=== PATIENT | male | born 1970 | race Caucasian/White ===

== ENCOUNTER 2016-08-16 08:02 | Emergency (ER) | payer OTHER ==
[2016-08-16 08:07] VITALS: RESP 18
--- NOTE | 2016-08-16 08:42 | EDPHY ---
H & P Time Seen by Provider: 08/16/16 08:19 HPI/ROS: CHIEF COMPLAINT: Left thumb, hand laceration HISTORY OF PRESENT ILLNESS: The patient is a 38-year-old male who presents emergency department after cutting his left thumb and hand on a glass. He was trying to open the laundry room window. It was painted shut. It caught and then broke. The patient has mild discomfort. Bleeding is controlled. He has no numbness or tingling. He is able to move his hand and thumb fully. REVIEW OF SYSTEMS: Negative Past Medical/Surgical History: Past medical history negative Smoking Status: Never smoked Physical Exam: Vitals noted General Appearance: Alert and no distress. Head: Pupils equal. Normal. Respiratory: No respiratory distress. Cardiac: regular rate and rhythm. Extremities: Patient has a 2 cm laceration on the base of his left thumb. This is irregular. There is no deep to tissue injury. I visualized no muscle, tendon or ligament injury. No visible foreign body. The patient also has a punctate lesion at the base of his left 5th metacarpal. Patient has full range of motion of his hand. Normal door cutter. Neurovascular intact distally. Skin: No rashes or lesions. Neuro: Alert. Normal mood and affect. Constitutional: Initial Vital Signs Temperature (C) 36.5 C 08/16/16 08:04 Heart Rate 63 08/16/16 08:04 Respiratory Rate 18 08/16/16 08:04 Blood Pressure 108/77 08/16/16 08:04 O2 Sat (%) 95 08/16/16 08:04 O2 Delivery Mode Room Air Allergies/Adverse Reactions: No Known Allergies Allergy (Unverified 08/16/16 08:04) Home Medications: Medication Instructions Recorded NK [No Known Home Meds] 08/16/16 Medical Decision Making ED Course/Re-evaluation: In the emergency department I discussed possible etiologies with the patient. I answered all his questions. Procedure: Laceration repair. Verbal consent was obtained from the patient. The 2 cm laceration on the base of the left thumb was anesthetized in the usual fashion. The wound was irrigated, draped and explored to its base with a gloved finger. There were no deep structures involved. No tendon injury was identified. The wound was repaired with 5 0 nylon. The wound repair was simple. The procedure was performed by myself. I discussed wound care instructions with the patient. I answered all his questions. He is given warnings prior to leaving. He will return with worsening symptoms. Differential Diagnosis: My differential includes but is not limited to laceration, foreign body, ligamentous injury, muscle injury, vascular injury, nerve injury Departure - Departure Disposition: Home, Routine, Self-Care Clinical Impression: Hand laceration Qualifiers: Encounter type: initial encounter Foreign body presence: without foreign body Laterality: left Qualified Code(s): S61.412A - Laceration without foreign body of left hand, initial encounter Condition: Good Instructions: Laceration (ED) Additional Instructions: Return with increased redness, pain, fever or any other concerns. Keep your wound clean and dry. Referrals: Sabrina Dutta MD [Primary Care Provider] - 3-4 days, if not improved
[2016-08-16] MEDS ORDERED: TDAP ADULT 0.5 ML INJ (BOOSTRIX) IM ONE (09:17)
[2016-08-16 09:27] VITALS: BP 121/79; PULSE 64; TEMP 98.6; O2SAT 96
== END 2016-08-16 09:28 | disposition home or self-care (01) ==
PROC: 0HQGXZZ Repair Left Hand Skin, External Approach (ICD-10-PCS; principal; 2016-08-16)
DX: S61.012A Laceration without foreign body of left thumb without damage to nail, initial encounter (principal); Z23 Encounter for immunization; W25.XXXA Contact with sharp glass, initial encounter

== ENCOUNTER 2016-08-18 09:17 | Emergency (ER) | payer OTHER ==
--- NOTE | 2016-08-18 09:39 | EDPHY ---
H & P Stated Complaint: l great toe pain/no known trauma HPI/ROS: Chief complaint: Left great toe pain History of present illness: 46-year-old male presents to the emergency department for left great toe pain. Patient reports the onset of symptoms over the last few days. Symptoms have slowly worsened. He has developed redness the toe. He denies precipitating factors such as trauma. He has used ibuprofen which has helped but not resolve the problem. He denies other associated signs or symptoms including no history of trauma, no fevers, no paresthesias or abnormal coolness in the toe. He has never had similar. - Personal History Current Tetanus/Diphtheria Vaccine: Yes - Medical/Surgical History Hx Asthma: No Hx Chronic Respiratory Disease: No Hx Diabetes: No Hx Cardiac Disease: No Hx Renal Disease: No Hx Cirrhosis: No Hx Alcoholism: No Hx HIV/AIDS: No Hx Splenectomy or Spleen Trauma: No Other PMH: denies - Social History Smoking Status: Never smoked - Physical Exam Exam: General: Alert, nontoxic Skin: Mild erythema over the 1st MTP joint. No warmth, induration or fluctuance on palpation. No red streaking. Musculoskeletal: He is flexing and extending his left great toe and I am passively ranging it without discomfort. Vascular: Capillary refill brisk in the left great toe. DP and PT pulses 2+. Neurologic: Sensation intact in left great toe. Constitutional: Initial Vital Signs Temperature (C) 36.5 C 08/18/16 09:20 Heart Rate 61 08/18/16 09:20 Respiratory Rate 18 08/18/16 09:20 Blood Pressure 137/66 H 08/18/16 09:20 O2 Sat (%) 98 08/18/16 09:20 O2 Delivery Mode Room Air Allergies/Adverse Reactions: No Known Allergies Allergy (Verified 08/18/16 09:20) Home Medications: Medication Instructions Recorded Indomethacin [Indocin 25 mg (*)] 50 mg PO TID #20 cap 08/18/16 Medical Decision Making - Diagnostics Imaging Results: Imaging Impressions Toe X-Ray 08/18/16 09:30 Impression: No definite fracture of the left great toe. Imaging: I viewed and interpreted images myself ED Course/Re-evaluation: Patient seen under the supervision of my secondary supervising physician Dr. Ric Caldera. Patient presents to the emergency department for evaluation of discomfort in his left great toe with associated erythema. Mild discomfort reported. His toe is neurovascularly intact. X-rays negative. I am most concerned for joint arthropathy. However my suspicion for infectious pathology such as cellulitis or septic joint is low given lack of fever, no warmth on palpation, no discomfort with active or passive range of motion. Patient will be symptomatically treated with indomethacin. He is asked to follow up with his primary care doctor for recheck. Strict return precautions are given. Patient voiced understanding and agreement with plan. Differential Diagnosis: Included but not limited to traumatic injury such as fracture or joint dislocation or sprain or strain, gout, pseudogout, septic arthritis, cellulitis Departure - Departure Disposition: Home, Routine, Self-Care Clinical Impression: Toe pain, left Condition: Good Instructions: Gout (ED) Additional Instructions: Follow-up with your primary care doctor for continued evaluation and care Do not take other instead medications such as aspirin, ibuprofen or Aleve with the indomethacin If symptoms worsen or new symptoms develop return to the emergency room for recheck Referrals: Sabrina Dutta MD [Primary Care Provider] - As per Instructions Prescriptions: Indomethacin [Indocin 25 mg (*)] 50 mg PO TID #20 cap
[2016-08-18 10:50] VITALS: BP 120/77; PULSE 80; RESP 14; TEMP 98.4; O2SAT 94
== END 2016-08-18 10:46 | disposition home or self-care (01) ==
DX: M79.675 Pain in left toe(s) (principal)